=== PATIENT | female | born 1935 | race African-American/Black ===

== ENCOUNTER 2016-11-09 15:03 | Emergency (ER) | payer MEDICARE, OTHER ==
[~2016-11-09] VITALS: Ht 162.6 cm; Wt 57.7 kg
[~2016-11-09 15:03] MED LIST: ASPI-556 PO; ATEN50TA PO; ATOR40TA28 PO; CLOP75 PO; DSS100 PO; ERGO500044 PO; FAMO20 PO; HYDR25 PO; LOSA25TA21 PO; MAGOX PO; METF500T4 PO; MULT-248 PO; SENN-30 PO
[2016-11-09 15:27] LABS: GLUCOSE,POINT OF CARE 96 MG/DL (70-110)
[2016-11-09] MEDS ORDERED: CloNIDine HCL 0.2 MG TABLET PO ONE (18:30)
[2016-11-09 19:27] LABS: BASOPHILS % (AUTO) 0.5 % (0.0-2.0); EOSINOPHILS % (AUTO) 5.9 % (1.0-6.0); HEMATOCRIT 44.6 % (36-46); HEMOGLOBIN 13.9 g/dL (12.0-16.0); LYMPHOCYTES % (AUTO) 30.6 % (22.0-44.0); MEAN CORPUSCULAR HEMOGLOBIN 26.7 pg (26.0-34.0); MEAN CORPUSCULAR HGB CONC 31.1 G/dL (31.0-37.0); MEAN CORPUSCULAR VOLUME 86 fL (80-100); MONOCYTES # (AUTO) 0.7 K/uL (0.1-1.0); MONOCYTES % (AUTO) 7.6 % (2.0-9.0); NEUTROPHILS # (AUTO) 5.4 K/uL (1.8-7.7); NEUTROPHILS % (AUTO) 55.4 % (40.0-70.0); PLATELET COUNT (AUTO) 261 K/uL (150-450); RED BLOOD CELL COUNT(AUTO) 5.19 MIL/uL (4.00-5.20); WHITE BLOOD COUNT (AUTO) 9.7 K/uL (4.5-11.0)
[2016-11-09 19:31] LABS: ANION GAP 11 mmol/L (8-16); CARBON DIOXIDE 27 mmol/L (22-29); CHLORIDE 104 mmol/L (98-107); CREATININE 0.71 mg/dL (0.60-1.30); GLOMERULAR FILTR. RATE CALC > 60 mL/min (>60); POTASSIUM 3.8 mmol/L (3.5-5.1); SODIUM SERUM 142 mmol/L (136-145); UREA NITROGEN, BLOOD 8 mg/dL (7-18)
[2016-11-09 19:37] LABS: ALANINE AMINOTRANSFERASE 41 U/L (12-78); ALBUMIN 4.1 g/dL (3.4-5.0); ASPARTATE AMINOTRANSFERASE 36 U/L (15-37); BILIRUBIN,TOTAL 0.8 mg/dL (0.1-1.0); CREATINE KINASE, TOTAL 75 U/L (26-192); TOTAL PROTEIN, SERUM 8.2 g/dL (6.4-8.2)
[2016-11-09 19:42] LABS: B-TYPE NATRIURETIC PEPTIDE 63 pg/mL (0-100)
[2016-11-09 20:45] LABS: CREATINE KINASE MB 0.9 ng/mL (0-5)
[2016-11-09 21:49] VITALS: BP 123/68
== END 2016-11-09 22:26 | disposition home or self-care (01) ==
LOC: EMS 15:06
DX: I10 Essential (primary) hypertension (principal); E11.9 Type 2 diabetes mellitus without complications; E78.00 Pure hypercholesterolemia, unspecified; Z86.73 Personal history of transient ischemic attack (TIA), and cerebral infarction without residual deficits; Z79.82 Long term (current) use of aspirin
CPT/HCPCS: 82962; 93005; 99285

== ENCOUNTER 2017-09-30 17:20 | Inpatient (IN) | payer MEDICARE, OTHER ==
[~2017-09-30] VITALS: Ht 162.6 cm; Wt 63.5 kg
[~2017-09-30 17:20] MED LIST changes: -HYDR25 PO; +HYDR25TA84 PO; -METF500T4 PO; +METF500T6 PO; +SENN-175 PO; -SENN-30 PO
[2017-09-30 17:30] VITALS: BP 105/76
[2017-09-30] MEDS ORDERED: TEMAZEPAM 15 MG CAPSULE PO PRN (18:30)
[2017-09-30] MEDS ORDERED: DOCUSATE SODIUM 283 MG/5 ML MINI-ENEMA PR PRN (18:30)
[2017-09-30] MEDS ORDERED: DEXTROSE 50%-WATER 25 GM/50 ML SYRINGE IVP PRN (18:30)
[2017-09-30] MEDS: HydrALAZINE HCL 25 MG TABLET PO SCH (21:00)
[2017-09-30] MEDS: ATENOLOL 50 MG TABLET PO SCH (21:00)
[2017-09-30 21:01] LABS: APPEARANCE,URINE CLOUDY (CLEAR); BILIRUBIN,URINE NEGATIVE (NEGATIVE); GLUCOSE, URINE (UA) 250 mg/dL (NEGATIVE); KETONES,URINE TRACE mg/dL (NEGATIVE); LEUKOCYTE ESTERASE ,URINE MODERATE (NEGATIVE); NITRATE,URINE NEGATIVE (NEGATIVE); OCCULT BLOOD,URINE NEGATIVE (NEGATIVE); PH,URINE 5.5 (5.0-8.0); PROTEIN,URINE NEGATIVE (NEGATIVE)
[2017-09-30] MEDS: DOCUSATE SODIUM 100 MG CAPSULE PO SCH (21:18)
[2017-09-30] MEDS: SENNA 187 MG TABLET PO SCH (21:18)
[2017-09-30] MEDS: ATORVASTATIN CALCIUM 40 MG TABLET PO SCH (21:18)
[2017-09-30 21:34] LABS: BACTERIA,URINE Rare /HPF (None Seen); RBC,URINE None Seen /HPF (0-2); SQUAMOUS EPITHELIAL CELL,UR Few /LPF (None Seen)
[2017-09-30] MEDS: INSULIN LISPRO 100 UNITS/ML SQ PRN (21:35)
[2017-09-30] MEDS: INSULIN GLARGINE,HUM.REC.ANLOG 100 UNITS/ML SQ SCH (21:36)
[2017-09-30] MEDS: HYDROCODONE/ACETAMINOPHEN 5-325 MG TABLET PO PRN (21:52)
[2017-09-30 21:58] LABS: GLUCOMETER DEV NAME(LOC) 2WR 1B; GLUCOSE,POINT OF CARE 258 MG/DL (70-110)
[2017-10-01 05:00] VITALS: BP 118/53
[2017-10-01 05:47] LABS: GLUCOMETER DEV NAME(LOC) 2WR 1B; GLUCOSE,POINT OF CARE 241 MG/DL (70-110)
[2017-10-01] MEDS: LACTULOSE 20 GM/30 ML SOLUTION UDCUP PO PRN (06:11)
[2017-10-01] MEDS: HYDROCODONE/ACETAMINOPHEN 5-325 MG TABLET PO PRN (06:15)
[2017-10-01 07:43] LABS: BASOPHILS % (AUTO) 1.2 % (0.0-2.0); EOSINOPHILS % (AUTO) 4.8 % (1.0-6.0); HEMATOCRIT 31.5 % (36-46); HEMOGLOBIN 10.5 g/dL (12.0-16.0); LYMPHOCYTES # (AUTO) 2.2 K/uL (1.0-4.8); LYMPHOCYTES % (AUTO) 18.4 % (22.0-44.0); MEAN CORPUSCULAR HEMOGLOBIN 27.4 pg (26.0-34.0); MEAN CORPUSCULAR HGB CONC 33.3 G/dL (31.0-37.0); MEAN CORPUSCULAR VOLUME 83 fL (80-100); MONOCYTES # (AUTO) 1.1 K/uL (0.1-1.0); MONOCYTES % (AUTO) 9.7 % (2.0-9.0); NEUTROPHILS # (AUTO) 7.8 K/uL (1.8-7.7); NEUTROPHILS % (AUTO) 65.9 % (40.0-70.0); PLATELET COUNT (AUTO) 215 K/uL (150-450); RED BLOOD CELL COUNT(AUTO) 3.82 MIL/uL (4.00-5.20); RED CELL DISTRIBUTION WIDTH 13.6 % (11.5-14.5)
[2017-10-01 08:22] VITALS: BP 104/52
[2017-10-01] MEDS: INSULIN LISPRO 100 UNITS/ML SQ SCH ×3 (08:37→16:48)
[2017-10-01] MEDS: INSULIN LISPRO 100 UNITS/ML SQ PRN ×2 (08:38→20:37)
[2017-10-01 08:46] LABS: ALBUMIN 2.5 g/dL (3.4-5.0); BILIRUBIN,TOTAL 1.1 mg/dL (0.1-1.0); CALCIUM, TOTAL 8.9 mg/dL (8.8-10.5); CREATININE 1.22 mg/dL (0.60-1.30); MAGNESIUM 1.8 mg/dL (1.80-2.40); POTASSIUM 3.5 mmol/L (3.5-5.1); TOTAL PROTEIN, SERUM 6.1 g/dL (6.4-8.2)
[2017-10-01] MEDS ORDERED: ENOXAPARIN SODIUM 30 MG/0.3 ML PF SYRINGE SQ SCH (09:00)
[2017-10-01] MEDS ORDERED: HYDROCHLOROTHIAZIDE 25 MG TABLET PO SCH (09:00)
[2017-10-01] MEDS: VALSARTAN 80 MG TABLET PO SCH (09:00)
[2017-10-01] MEDS: HydrALAZINE HCL 25 MG TABLET PO SCH ×4 (09:00→20:34)
[2017-10-01] MEDS ORDERED: AmLODIPine BESYLATE 10 MG TABLET PO SCH (09:00)
[2017-10-01] MEDS: ATENOLOL 50 MG TABLET PO SCH ×2 (09:00→20:34)
[2017-10-01] MEDS: CLOPIDOGREL BISULFATE 75 MG TABLET PO SCH (09:41)
[2017-10-01] MEDS: MAGNESIUM OXIDE 400 MG TABLET PO SCH (09:41)
[2017-10-01] MEDS: DOCUSATE SODIUM 100 MG CAPSULE PO SCH ×2 (09:41→20:34)
[2017-10-01] MEDS: FAMOTIDINE 20 MG TABLET PO SCH (09:41)
[2017-10-01] MEDS: HYDROCODONE/ACETAMINOPHEN 10-325 MG TABLET PO PRN ×2 (09:41→18:57)
[2017-10-01 12:32] LABS: GLUCOMETER DEV NAME(LOC) 2WR 2E; GLUCOSE,POINT OF CARE 268 MG/DL (70-110)
[2017-10-01 13:42] VITALS: BP 107/53
[2017-10-01] MEDS: ENOXAPARIN SODIUM 40 MG/0.4 ML PF SYRINGE SQ SCH (13:46)
[2017-10-01 15:30] VITALS: BP 101/48
[2017-10-01 16:58] LABS: GLUCOMETER DEV NAME(LOC) 2WR 1B; GLUCOSE,POINT OF CARE 355 MG/DL (70-110)
[2017-10-01 20:25] VITALS: BP 122/56
[2017-10-01] MEDS: SENNA 187 MG TABLET PO SCH (20:34)
[2017-10-01] MEDS: ATORVASTATIN CALCIUM 40 MG TABLET PO SCH (20:34)
[2017-10-01] MEDS: INSULIN GLARGINE,HUM.REC.ANLOG 100 UNITS/ML SQ SCH (20:36)
[2017-10-01 20:52] LABS: GLUCOMETER DEV NAME(LOC) 2WR 1B; GLUCOSE,POINT OF CARE 317 MG/DL (70-110)
[2017-10-02 00:38] VITALS: BP 132/61
[2017-10-02] MEDS: HYDROCODONE/ACETAMINOPHEN 10-325 MG TABLET PO PRN ×3 (00:38→14:07)
[2017-10-02] MEDS: CefTRIAXone SODIUM 1 GM in DEXTROSE 5%-WATER 10 ML IV SCH ×2 (00:41→21:54)
[2017-10-02 06:02] LABS: GLUCOMETER DEV NAME(LOC) 2WR 2E; GLUCOSE,POINT OF CARE 248 MG/DL (70-110)
[2017-10-02] MEDS: LACTULOSE 20 GM/30 ML SOLUTION UDCUP PO PRN (06:21)
[2017-10-02 07:07] LABS: BASOPHILS % (AUTO) 0.4 % (0.0-2.0); EOSINOPHILS % (AUTO) 4.6 % (1.0-6.0); HEMATOCRIT 31.4 % (36-46); HEMOGLOBIN 10.6 g/dL (12.0-16.0); LYMPHOCYTES # (AUTO) 2.2 K/uL (1.0-4.8); LYMPHOCYTES % (AUTO) 19.3 % (22.0-44.0); MEAN CORPUSCULAR HEMOGLOBIN 28.1 pg (26.0-34.0); MEAN CORPUSCULAR HGB CONC 33.8 G/dL (31.0-37.0); MEAN CORPUSCULAR VOLUME 83 fL (80-100); MONOCYTES # (AUTO) 1.1 K/uL (0.1-1.0); MONOCYTES % (AUTO) 9.6 % (2.0-9.0); NEUTROPHILS # (AUTO) 7.7 K/uL (1.8-7.7); NEUTROPHILS % (AUTO) 66.1 % (40.0-70.0); PLATELET COUNT (AUTO) 232 K/uL (150-450); RED BLOOD CELL COUNT(AUTO) 3.79 MIL/uL (4.00-5.20); RED CELL DISTRIBUTION WIDTH 13.5 % (11.5-14.5)
[2017-10-02 08:09] VITALS: BP 123/65
[2017-10-02] MEDS: VALSARTAN 80 MG TABLET PO SCH (08:56)
[2017-10-02] MEDS: CLOPIDOGREL BISULFATE 75 MG TABLET PO SCH (08:56)
[2017-10-02] MEDS: FAMOTIDINE 20 MG TABLET PO SCH (08:56)
[2017-10-02] MEDS: MAGNESIUM OXIDE 400 MG TABLET PO SCH (08:56)
[2017-10-02] MEDS: ATENOLOL 50 MG TABLET PO SCH ×2 (08:56→20:28)
[2017-10-02] MEDS: DOCUSATE SODIUM 250 MG CAPSULE PO SCH ×2 (08:57→20:25)
[2017-10-02] MEDS: 0.9% SODIUM CHLORIDE 10 ML SYRINGE IVP SCH ×3 (08:57→23:30)
[2017-10-02] MEDS: ENOXAPARIN SODIUM 40 MG/0.4 ML PF SYRINGE SQ SCH (08:58)
[2017-10-02] MEDS: INSULIN LISPRO 100 UNITS/ML SQ SCH ×3 (09:12→18:43)
[2017-10-02] MEDS: INSULIN LISPRO 100 UNITS/ML SQ PRN ×3 (09:13→18:44)
[2017-10-02 12:17] LABS: GLUCOMETER DEV NAME(LOC) 2WR 2E; GLUCOSE,POINT OF CARE 329 MG/DL (70-110)
[2017-10-02 15:10] VITALS: BP 130/64
[2017-10-02 17:03] LABS: GLUCOMETER DEV NAME(LOC) 2WR 2E; GLUCOSE,POINT OF CARE 188 MG/DL (70-110)
[2017-10-02 20:19] VITALS: BP 101/50
[2017-10-02] MEDS: ATORVASTATIN CALCIUM 40 MG TABLET PO SCH (20:25)
[2017-10-02] MEDS: SENNA 187 MG TABLET PO SCH (20:25)
[2017-10-02] MEDS ORDERED: OxyCODONE HCL 10 MG ER TABLET PO PRN (20:30)
[2017-10-02] MEDS: HYDROCODONE/ACETAMINOPHEN 5-325 MG TABLET PO PRN (20:32)
[2017-10-02] MEDS: INSULIN GLARGINE,HUM.REC.ANLOG 100 UNITS/ML SQ SCH (20:32)
[2017-10-02 21:17] LABS: GLUCOMETER DEV NAME(LOC) 2WR 1B; GLUCOSE,POINT OF CARE 173 MG/DL (70-110)
[2017-10-02] MEDS ORDERED: CefTRIAXone SODIUM 1 GM in DEXTROSE 5%-WATER 10 ML IV SCH (22:00)
[2017-10-02 23:44] VITALS: BP 103/52
[2017-10-03 06:23] LABS: GLUCOMETER DEV NAME(LOC) 2WR 1B; GLUCOSE,POINT OF CARE 155 MG/DL (70-110)
[2017-10-03 07:18] VITALS: BP 132/62
[2017-10-03] MEDS: INSULIN LISPRO 100 UNITS/ML SQ SCH ×3 (08:06→18:13)
[2017-10-03] MEDS: 0.9% SODIUM CHLORIDE 10 ML SYRINGE IVP SCH ×3 (08:10→23:25)
[2017-10-03] MEDS: FAMOTIDINE 20 MG TABLET PO SCH (09:00)
[2017-10-03] MEDS: ATENOLOL 50 MG TABLET PO SCH ×2 (09:00→21:19)
[2017-10-03] MEDS: ENOXAPARIN SODIUM 40 MG/0.4 ML PF SYRINGE SQ SCH (09:00)
[2017-10-03] MEDS: HYDROCODONE/ACETAMINOPHEN 10-325 MG TABLET PO PRN ×2 (09:01→21:37)
[2017-10-03] MEDS: CLOPIDOGREL BISULFATE 75 MG TABLET PO SCH (09:01)
[2017-10-03] MEDS: DOCUSATE SODIUM 250 MG CAPSULE PO SCH ×2 (09:01→21:19)
[2017-10-03] MEDS: VALSARTAN 80 MG TABLET PO SCH (09:01)
[2017-10-03] MEDS: MAGNESIUM OXIDE 400 MG TABLET PO SCH (09:02)
[2017-10-03] MEDS: INSULIN LISPRO 100 UNITS/ML SQ PRN (12:47)
[2017-10-03 14:08] LABS: GLUCOMETER DEV NAME(LOC) 2WR 2E; GLUCOSE,POINT OF CARE 234 MG/DL (70-110)
[2017-10-03 15:10] VITALS: BP 106/50
[2017-10-03 17:47] LABS: GLUCOMETER DEV NAME(LOC) 2WR 2E; GLUCOSE,POINT OF CARE 211 MG/DL (70-110)
[2017-10-03 21:00] VITALS: BP 125/62
[2017-10-03] MEDS: SENNA 187 MG TABLET PO SCH (21:19)
[2017-10-03] MEDS: ATORVASTATIN CALCIUM 40 MG TABLET PO SCH (21:19)
[2017-10-03] MEDS: CefTRIAXone SODIUM 1 GM in DEXTROSE 5%-WATER 10 ML IV SCH (21:20)
[2017-10-03 21:28] LABS: GLUCOMETER DEV NAME(LOC) 2WR 2E; GLUCOSE,POINT OF CARE 244 MG/DL (70-110)
[2017-10-03] MEDS: INSULIN GLARGINE,HUM.REC.ANLOG 100 UNITS/ML SQ SCH (21:33)
[2017-10-03 23:19] VITALS: BP 107/66
[2017-10-04 05:47] LABS: GLUCOMETER DEV NAME(LOC) 2WR 2E; GLUCOSE,POINT OF CARE 199 MG/DL (70-110)
[2017-10-04] MEDS: LACTULOSE 20 GM/30 ML SOLUTION UDCUP PO PRN (06:24)
[2017-10-04 07:00] LABS: BASOPHILS % (AUTO) 0.4 % (0.0-2.0); EOSINOPHILS % (AUTO) 4.1 % (1.0-6.0); HEMATOCRIT 30.8 % (36-46); HEMOGLOBIN 10.1 g/dL (12.0-16.0); LYMPHOCYTES # (AUTO) 3.1 K/uL (1.0-4.8); LYMPHOCYTES % (AUTO) 23.5 % (22.0-44.0); MEAN CORPUSCULAR HEMOGLOBIN 27.2 pg (26.0-34.0); MEAN CORPUSCULAR HGB CONC 32.6 G/dL (31.0-37.0); MEAN CORPUSCULAR VOLUME 84 fL (80-100); MONOCYTES # (AUTO) 1.4 K/uL (0.1-1.0); MONOCYTES % (AUTO) 10.5 % (2.0-9.0); NEUTROPHILS # (AUTO) 8.1 K/uL (1.8-7.7); NEUTROPHILS % (AUTO) 61.5 % (40.0-70.0); PLATELET COUNT (AUTO) 273 K/uL (150-450); RED BLOOD CELL COUNT(AUTO) 3.69 MIL/uL (4.00-5.20)
[2017-10-04 07:10] LABS: ANION GAP 8 mmol/L (8-16); CALCIUM, TOTAL 8.9 mg/dL (8.8-10.5); CARBON DIOXIDE 28 mmol/L (22-29); CHLORIDE 101 mmol/L (98-107); CREATININE 1.02 mg/dL (0.60-1.30); GLOMERULAR FILTR. RATE CALC > 60 mL/min (>60); GLUCOSE,RANDOM 191 mg/dL (70-110); POTASSIUM 3.7 mmol/L (3.5-5.1); SODIUM SERUM 137 mmol/L (136-145); UREA NITROGEN, BLOOD 24 mg/dL (7-18)
[2017-10-04 07:47] VITALS: BP 116/61
[2017-10-04] MEDS: HYDROCODONE/ACETAMINOPHEN 10-325 MG TABLET PO PRN ×2 (07:49→20:18)
[2017-10-04] MEDS: INSULIN LISPRO 100 UNITS/ML SQ SCH (08:14)
[2017-10-04] MEDS: 0.9% SODIUM CHLORIDE 10 ML SYRINGE IVP SCH ×3 (08:14→23:29)
[2017-10-04] MEDS: INSULIN LISPRO 100 UNITS/ML SQ PRN ×3 (08:20→20:49)
[2017-10-04] MEDS ORDERED: ATENOLOL 25 MG TABLET PO SCH (09:00)
[2017-10-04 09:33] VITALS: BP 91/49
[2017-10-04] MEDS: FAMOTIDINE 20 MG TABLET PO SCH (09:37)
[2017-10-04] MEDS: CLOPIDOGREL BISULFATE 75 MG TABLET PO SCH (09:37)
[2017-10-04] MEDS: DOCUSATE SODIUM 250 MG CAPSULE PO SCH ×2 (09:37→20:18)
[2017-10-04] MEDS: MAGNESIUM OXIDE 400 MG TABLET PO SCH (09:38)
[2017-10-04] MEDS: ENOXAPARIN SODIUM 40 MG/0.4 ML PF SYRINGE SQ SCH (09:39)
[2017-10-04] MEDS: HYDROCODONE/ACETAMINOPHEN 5-325 MG TABLET PO PRN (14:08)
[2017-10-04 15:28] LABS: GLUCOMETER DEV NAME(LOC) 2WR 1B; GLUCOSE,POINT OF CARE 240 MG/DL (70-110)
[2017-10-04 15:28] LABS: GLUCOMETER DEV NAME(LOC) 2WR 1B; GLUCOSE,POINT OF CARE 290 MG/DL (70-110)
[2017-10-04 16:06] VITALS: BP 104/57
[2017-10-04 16:18] LABS: APPEARANCE,URINE CLEAR (CLEAR); BILIRUBIN,URINE NEGATIVE (NEGATIVE); GLUCOSE, URINE (UA) 500 mg/dL (NEGATIVE); KETONES,URINE TRACE mg/dL (NEGATIVE); LEUKOCYTE ESTERASE ,URINE NEGATIVE (NEGATIVE); NITRATE,URINE NEGATIVE (NEGATIVE); OCCULT BLOOD,URINE NEGATIVE (NEGATIVE); PROTEIN,URINE NEGATIVE (NEGATIVE)
[2017-10-04 16:37] LABS: BACTERIA,URINE None Seen /HPF (None Seen); RBC,URINE 0-2 /HPF (0-2); SQUAMOUS EPITHELIAL CELL,UR Few /LPF (None Seen); WBC,URINE 0-2 /HPF (0-5)
[2017-10-04 17:18] LABS: GLUCOMETER DEV NAME(LOC) 2WR 2E; GLUCOSE,POINT OF CARE 208 MG/DL (70-110)
[2017-10-04] MEDS: MetFORMIN HCL 500 MG TABLET PO SCH (18:29)
[2017-10-04] MEDS: ATORVASTATIN CALCIUM 40 MG TABLET PO SCH (20:16)
[2017-10-04] MEDS: SENNA 187 MG TABLET PO SCH (20:17)
[2017-10-04] MEDS: CefTRIAXone SODIUM 1 GM in DEXTROSE 5%-WATER 10 ML IV SCH (20:20)
[2017-10-04 20:38] LABS: GLUCOMETER DEV NAME(LOC) 2WR 2E; GLUCOSE,POINT OF CARE 254 MG/DL (70-110)
[2017-10-04] MEDS: ACETAMINOPHEN 325 MG TABLET PO PRN (22:42)
[2017-10-05] VITALS: BP 118/57
[2017-10-05] MEDS: LACTULOSE 20 GM/30 ML SOLUTION UDCUP PO PRN (05:32)
[2017-10-05 05:47] LABS: GLUCOMETER DEV NAME(LOC) 2WR 1B; GLUCOSE,POINT OF CARE 198 MG/DL (70-110)
[2017-10-05 07:40] VITALS: BP 115/61
[2017-10-05] MEDS: OxyCODONE HCL 10 MG ER TABLET PO SCH (08:35)
[2017-10-05] MEDS: DOCUSATE SODIUM 250 MG CAPSULE PO SCH ×2 (08:35→21:07)
[2017-10-05] MEDS: CLOPIDOGREL BISULFATE 75 MG TABLET PO SCH (08:35)
[2017-10-05] MEDS: FAMOTIDINE 20 MG TABLET PO SCH (08:35)
[2017-10-05] MEDS: MetFORMIN HCL 500 MG TABLET PO SCH ×2 (08:36→17:00)
[2017-10-05] MEDS: 0.9% SODIUM CHLORIDE 10 ML SYRINGE IVP SCH ×2 (08:36→16:54)
[2017-10-05] MEDS: MAGNESIUM OXIDE 400 MG TABLET PO SCH (08:36)
[2017-10-05] MEDS: ENOXAPARIN SODIUM 40 MG/0.4 ML PF SYRINGE SQ SCH (08:37)
[2017-10-05] MEDS: INSULIN LISPRO 100 UNITS/ML SQ PRN ×4 (08:37→21:51)
[2017-10-05] MEDS: SitaGLIPtin PHOSPHATE 25 MG TABLET PO SCH (08:43)
[2017-10-05 11:33] LABS: GLUCOMETER DEV NAME(LOC) 2WR 2E; GLUCOSE,POINT OF CARE 276 MG/DL (70-110)
[2017-10-05] MEDS: HYDROCODONE/ACETAMINOPHEN 5-325 MG TABLET PO PRN ×2 (13:33→18:13)
[2017-10-05 16:30] VITALS: BP 125/59
[2017-10-05 18:07] LABS: GLUCOMETER DEV NAME(LOC) 2WR 1B; GLUCOSE,POINT OF CARE 167 MG/DL (70-110)
[2017-10-05] MEDS: ATORVASTATIN CALCIUM 40 MG TABLET PO SCH (21:07)
[2017-10-05] MEDS: SENNA 187 MG TABLET PO SCH (21:07)
[2017-10-05 21:58] LABS: GLUCOMETER DEV NAME(LOC) 2WR 1B; GLUCOSE,POINT OF CARE 180 MG/DL (70-110)
[2017-10-06] MEDS: 0.9% SODIUM CHLORIDE 10 ML SYRINGE IVP SCH ×3 (00:26→16:00)
[2017-10-06 05:00] VITALS: BP 127/64
[2017-10-06 05:43] LABS: GLUCOMETER DEV NAME(LOC) 2WR 2E; GLUCOSE,POINT OF CARE 162 MG/DL (70-110)
[2017-10-06 06:53] LABS: BASOPHILS % (AUTO) 0.1 % (0.0-2.0); EOSINOPHILS % (AUTO) 3.3 % (1.0-6.0); HEMATOCRIT 30.5 % (36-46); LYMPHOCYTES # (AUTO) 2.2 K/uL (1.0-4.8); LYMPHOCYTES % (AUTO) 18.8 % (22.0-44.0); MEAN CORPUSCULAR HEMOGLOBIN 27.6 pg (26.0-34.0); MEAN CORPUSCULAR HGB CONC 32.8 G/dL (31.0-37.0); MEAN CORPUSCULAR VOLUME 84 fL (80-100); MONOCYTES # (AUTO) 1.1 K/uL (0.1-1.0); MONOCYTES % (AUTO) 9.2 % (2.0-9.0); NEUTROPHILS # (AUTO) 7.9 K/uL (1.8-7.7); NEUTROPHILS % (AUTO) 68.6 % (40.0-70.0); PLATELET COUNT (AUTO) 337 K/uL (150-450); RED BLOOD CELL COUNT(AUTO) 3.62 MIL/uL (4.00-5.20); RED CELL DISTRIBUTION WIDTH 14.6 % (11.5-14.5)
[2017-10-06 07:22] VITALS: BP 122/61
[2017-10-06] MEDS: OxyCODONE HCL 10 MG ER TABLET PO SCH ×2 (07:27→21:09)
[2017-10-06] MEDS: CLOPIDOGREL BISULFATE 75 MG TABLET PO SCH (08:28)
[2017-10-06] MEDS: MetFORMIN HCL 500 MG TABLET PO SCH ×2 (08:29→16:29)
[2017-10-06] MEDS: MAGNESIUM OXIDE 400 MG TABLET PO SCH (08:29)
[2017-10-06] MEDS: SitaGLIPtin PHOSPHATE 25 MG TABLET PO SCH (08:29)
[2017-10-06] MEDS: FAMOTIDINE 20 MG TABLET PO SCH (08:29)
[2017-10-06] MEDS: DOCUSATE SODIUM 250 MG CAPSULE PO SCH ×2 (08:29→21:08)
[2017-10-06] MEDS: ENOXAPARIN SODIUM 40 MG/0.4 ML PF SYRINGE SQ SCH (08:30)
[2017-10-06] MEDS: INSULIN LISPRO 100 UNITS/ML SQ PRN ×3 (08:37→21:21)
[2017-10-06 12:48] LABS: GLUCOMETER DEV NAME(LOC) 2WR 2E; GLUCOSE,POINT OF CARE 214 MG/DL (70-110)
[2017-10-06] MEDS: HYDROCODONE/ACETAMINOPHEN 10-325 MG TABLET PO PRN (12:54)
[2017-10-06 15:59] VITALS: BP 110/57
[2017-10-06 19:47] LABS: GLUCOMETER DEV NAME(LOC) 2WR 1B; GLUCOSE,POINT OF CARE 127 MG/DL (70-110)
[2017-10-06] MEDS: SENNA 187 MG TABLET PO SCH (21:08)
[2017-10-06] MEDS: ATORVASTATIN CALCIUM 40 MG TABLET PO SCH (21:08)
[2017-10-06] MEDS: ACETAMINOPHEN 325 MG TABLET PO PRN (21:22)
[2017-10-06 23:08] LABS: GLUCOMETER DEV NAME(LOC) 2WR 1B; GLUCOSE,POINT OF CARE 148 MG/DL (70-110)
[2017-10-07] MEDS: 0.9% SODIUM CHLORIDE 10 ML SYRINGE IVP SCH
[2017-10-07 00:11] VITALS: BP 122/55
[2017-10-07 06:28] LABS: GLUCOMETER DEV NAME(LOC) 2WR 2E; GLUCOSE,POINT OF CARE 145 MG/DL (70-110)
[2017-10-07 07:18] VITALS: BP 124/58
[2017-10-07] MEDS: MetFORMIN HCL 500 MG TABLET PO SCH ×2 (08:04→18:49)
[2017-10-07] MEDS: CLOPIDOGREL BISULFATE 75 MG TABLET PO SCH (08:05)
[2017-10-07] MEDS: MAGNESIUM OXIDE 400 MG TABLET PO SCH (08:05)
[2017-10-07] MEDS: DOCUSATE SODIUM 250 MG CAPSULE PO SCH ×2 (08:05→20:47)
[2017-10-07] MEDS: FAMOTIDINE 20 MG TABLET PO SCH (08:05)
[2017-10-07] MEDS: SitaGLIPtin PHOSPHATE 25 MG TABLET PO SCH (08:05)
[2017-10-07] MEDS: ENOXAPARIN SODIUM 40 MG/0.4 ML PF SYRINGE SQ SCH (08:06)
[2017-10-07] MEDS: OxyCODONE HCL 10 MG ER TABLET PO SCH ×2 (08:06→20:47)
[2017-10-07] MEDS: INSULIN LISPRO 100 UNITS/ML SQ PRN ×2 (08:20→13:00)
[2017-10-07] MEDS: HYDROCODONE/ACETAMINOPHEN 5-325 MG TABLET PO PRN (11:41)
[2017-10-07 12:48] LABS: GLUCOMETER DEV NAME(LOC) 2WR 1B; GLUCOSE,POINT OF CARE 170 MG/DL (70-110)
[2017-10-07 15:51] VITALS: BP 121/58
[2017-10-07 18:03] LABS: GLUCOMETER DEV NAME(LOC) 2WR 2E; GLUCOSE,POINT OF CARE 133 MG/DL (70-110)
[2017-10-07] MEDS: SENNA 187 MG TABLET PO SCH (20:47)
[2017-10-07] MEDS: ATORVASTATIN CALCIUM 40 MG TABLET PO SCH (20:47)
[2017-10-07 21:08] LABS: GLUCOMETER DEV NAME(LOC) 2WR 1B; GLUCOSE,POINT OF CARE 136 MG/DL (70-110)
[2017-10-08 05:57] LABS: GLUCOMETER DEV NAME(LOC) 2WR 2E; GLUCOSE,POINT OF CARE 123 MG/DL (70-110)
[2017-10-08 06:12] VITALS: BP 138/74
[2017-10-08] MEDS: LACTULOSE 20 GM/30 ML SOLUTION UDCUP PO PRN (06:21)
[2017-10-08 08:30] VITALS: BP 121/50
[2017-10-08] MEDS: OxyCODONE HCL 10 MG ER TABLET PO SCH ×2 (08:35→21:26)
[2017-10-08] MEDS: SitaGLIPtin PHOSPHATE 25 MG TABLET PO SCH (09:30)
[2017-10-08] MEDS: MetFORMIN HCL 500 MG TABLET PO SCH ×2 (09:30→17:02)
[2017-10-08] MEDS: CLOPIDOGREL BISULFATE 75 MG TABLET PO SCH (09:30)
[2017-10-08] MEDS: MAGNESIUM OXIDE 400 MG TABLET PO SCH (09:30)
[2017-10-08] MEDS: DOCUSATE SODIUM 250 MG CAPSULE PO SCH ×2 (09:30→21:26)
[2017-10-08] MEDS: ENOXAPARIN SODIUM 40 MG/0.4 ML PF SYRINGE SQ SCH (09:31)
[2017-10-08] MEDS: FAMOTIDINE 20 MG TABLET PO SCH (09:31)
[2017-10-08 13:12] LABS: GLUCOMETER DEV NAME(LOC) 2WR 2E; GLUCOSE,POINT OF CARE 153 MG/DL (70-110)
[2017-10-08] MEDS: HYDROCODONE/ACETAMINOPHEN 10-325 MG TABLET PO PRN (13:30)
[2017-10-08] MEDS: INSULIN LISPRO 100 UNITS/ML SQ PRN (13:33)
[2017-10-08 15:36] VITALS: BP 128/64
[2017-10-08 17:48] LABS: GLUCOMETER DEV NAME(LOC) 2WR 1B; GLUCOSE,POINT OF CARE 125 MG/DL (70-110)
[2017-10-08] MEDS: SENNA 187 MG TABLET PO SCH (21:25)
[2017-10-08] MEDS: ATORVASTATIN CALCIUM 40 MG TABLET PO SCH (21:26)
[2017-10-08 22:27] LABS: GLUCOMETER DEV NAME(LOC) 2WR 2E; GLUCOSE,POINT OF CARE 140 MG/DL (70-110)
[2017-10-08 23:52] VITALS: BP 127/68
[2017-10-09 05:37] LABS: GLUCOMETER DEV NAME(LOC) 2WR 1B; GLUCOSE,POINT OF CARE 112 MG/DL (70-110)
[2017-10-09 07:55] VITALS: BP 136/83
[2017-10-09] MEDS: MetFORMIN HCL 500 MG TABLET PO SCH ×2 (08:26→17:10)
[2017-10-09] MEDS: SitaGLIPtin PHOSPHATE 25 MG TABLET PO SCH (08:26)
[2017-10-09] MEDS: FAMOTIDINE 20 MG TABLET PO SCH (08:26)
[2017-10-09] MEDS: OxyCODONE HCL 10 MG ER TABLET PO SCH ×2 (08:26→21:00)
[2017-10-09] MEDS: DOCUSATE SODIUM 250 MG CAPSULE PO SCH ×2 (08:27→21:00)
[2017-10-09] MEDS: ENOXAPARIN SODIUM 40 MG/0.4 ML PF SYRINGE SQ SCH (08:27)
[2017-10-09] MEDS: CLOPIDOGREL BISULFATE 75 MG TABLET PO SCH (08:28)
[2017-10-09] MEDS: MAGNESIUM OXIDE 400 MG TABLET PO SCH (08:32)
[2017-10-09 12:28] LABS: GLUCOMETER DEV NAME(LOC) 2WR 1B; GLUCOSE,POINT OF CARE 175 MG/DL (70-110)
[2017-10-09] MEDS: INSULIN LISPRO 100 UNITS/ML SQ PRN (12:35)
[2017-10-09 15:56] VITALS: BP 128/72
[2017-10-09 17:23] LABS: GLUCOMETER DEV NAME(LOC) 2WR 2E; GLUCOSE,POINT OF CARE 105 MG/DL (70-110)
[2017-10-09] MEDS: ATORVASTATIN CALCIUM 40 MG TABLET PO SCH (21:00)
[2017-10-09] MEDS: SENNA 187 MG TABLET PO SCH (21:00)
[2017-10-09 21:12] LABS: GLUCOMETER DEV NAME(LOC) 2WR 2E; GLUCOSE,POINT OF CARE 111 MG/DL (70-110)
[2017-10-10 00:08] VITALS: BP 131/71
[2017-10-10] MEDS: LACTULOSE 20 GM/30 ML SOLUTION UDCUP PO PRN (05:46)
[2017-10-10 05:52] LABS: GLUCOMETER DEV NAME(LOC) 2WR 2E; GLUCOSE,POINT OF CARE 108 MG/DL (70-110)
[2017-10-10] MEDS ORDERED: SITA25 PO (06:47)
[2017-10-10 09:44] VITALS: BP 143/64
[2017-10-10] MEDS: ENOXAPARIN SODIUM 40 MG/0.4 ML PF SYRINGE SQ SCH (10:07)
[2017-10-10] MEDS: SitaGLIPtin PHOSPHATE 25 MG TABLET PO SCH (10:07)
[2017-10-10] MEDS: DOCUSATE SODIUM 250 MG CAPSULE PO SCH (10:07)
[2017-10-10] MEDS: FAMOTIDINE 20 MG TABLET PO SCH (10:07)
[2017-10-10] MEDS: MAGNESIUM OXIDE 400 MG TABLET PO SCH ×2 (10:07→12:00)
[2017-10-10] MEDS: CLOPIDOGREL BISULFATE 75 MG TABLET PO SCH ×2 (10:07→12:00)
[2017-10-10] MEDS: OxyCODONE HCL 10 MG ER TABLET PO SCH ×2 (10:07→21:14)
[2017-10-10] MEDS: MetFORMIN HCL 500 MG TABLET PO SCH ×2 (10:07→17:51)
[2017-10-10] MEDS ORDERED: ONDANSETRON HCL 4 MG TABLET PO PRN (10:30)
[2017-10-10 12:22] LABS: GLUCOMETER DEV NAME(LOC) 2WR 2E; GLUCOSE,POINT OF CARE 163 MG/DL (70-110)
[2017-10-10 15:23] VITALS: BP 124/62
[2017-10-10 17:17] LABS: GLUCOMETER DEV NAME(LOC) 2WR 1B; GLUCOSE,POINT OF CARE 117 MG/DL (70-110)
[2017-10-10 20:52] LABS: GLUCOMETER DEV NAME(LOC) 2WR 1B; GLUCOSE,POINT OF CARE 120 MG/DL (70-110)
[2017-10-10] MEDS ORDERED: DOCUSATE SODIUM 100 MG CAPSULE PO SCH (21:00)
[2017-10-10] MEDS: ATORVASTATIN CALCIUM 40 MG TABLET PO SCH (21:22)
[2017-10-10] MEDS: SENNA 187 MG TABLET PO SCH (21:22)
[2017-10-10] MEDS: DOCUSATE SODIUM 100 MG CAPSULE PO SCH (21:22)
[2017-10-10 23:36] VITALS: BP 127/62
[2017-10-11 06:02] LABS: GLUCOMETER DEV NAME(LOC) 2WR 1B; GLUCOSE,POINT OF CARE 96 MG/DL (70-110)
[2017-10-11] MEDS: FAMOTIDINE 20 MG TABLET PO SCH (06:02)
[2017-10-11 08:09] VITALS: BP 119/59
[2017-10-11] MEDS: OxyCODONE HCL 10 MG ER TABLET PO SCH ×2 (08:36→20:19)
[2017-10-11] MEDS: MetFORMIN HCL 500 MG TABLET PO SCH ×2 (08:36→16:57)
[2017-10-11] MEDS: SitaGLIPtin PHOSPHATE 25 MG TABLET PO SCH (08:36)
[2017-10-11] MEDS: ENOXAPARIN SODIUM 40 MG/0.4 ML PF SYRINGE SQ SCH (08:36)
[2017-10-11] MEDS: HYDROCODONE/ACETAMINOPHEN 10-325 MG TABLET PO PRN (10:12)
[2017-10-11 11:37] LABS: GLUCOMETER DEV NAME(LOC) 2WR 1B; GLUCOSE,POINT OF CARE 196 MG/DL (70-110)
[2017-10-11] MEDS: MAGNESIUM OXIDE 400 MG TABLET PO SCH (11:38)
[2017-10-11] MEDS: CLOPIDOGREL BISULFATE 75 MG TABLET PO SCH (11:39)
[2017-10-11] MEDS: DOCUSATE SODIUM 100 MG CAPSULE PO SCH (11:39)
[2017-10-11] MEDS: INSULIN LISPRO 100 UNITS/ML SQ PRN ×2 (12:00→18:40)
[2017-10-11 13:57] LABS: GLUCOMETER DEV NAME(LOC) 2WR 1B; GLUCOSE,POINT OF CARE 124 MG/DL (70-110)
[2017-10-11 16:56] VITALS: BP 130/62
[2017-10-11 17:28] LABS: GLUCOMETER DEV NAME(LOC) 2WR 2E; GLUCOSE,POINT OF CARE 154 MG/DL (70-110)
[2017-10-11] MEDS: SENNA 187 MG TABLET PO SCH (20:19)
[2017-10-11] MEDS: ATORVASTATIN CALCIUM 40 MG TABLET PO SCH (20:19)
[2017-10-11 22:38] LABS: GLUCOMETER DEV NAME(LOC) 2WR 2E; GLUCOSE,POINT OF CARE 110 MG/DL (70-110)
[2017-10-12] VITALS: BP 133/63
[2017-10-12] MEDS: FAMOTIDINE 20 MG TABLET PO SCH (06:09)
[2017-10-12] MEDS: LACTULOSE 20 GM/30 ML SOLUTION UDCUP PO PRN (06:10)
[2017-10-12 06:13] LABS: GLUCOMETER DEV NAME(LOC) 2WR 2E; GLUCOSE,POINT OF CARE 104 MG/DL (70-110)
[2017-10-12 07:06] VITALS: BP 133/64
[2017-10-12] MEDS: MetFORMIN HCL 500 MG TABLET PO SCH ×2 (07:30→17:24)
[2017-10-12] MEDS: SitaGLIPtin PHOSPHATE 25 MG TABLET PO SCH (08:13)
[2017-10-12] MEDS: OxyCODONE HCL 10 MG ER TABLET PO SCH ×2 (08:13→20:48)
[2017-10-12] MEDS: ENOXAPARIN SODIUM 40 MG/0.4 ML PF SYRINGE SQ SCH (08:14)
[2017-10-12 13:18] LABS: GLUCOMETER DEV NAME(LOC) 2WR 1B; GLUCOSE,POINT OF CARE 162 MG/DL (70-110)
[2017-10-12] MEDS: DOCUSATE SODIUM 100 MG CAPSULE PO SCH (13:47)
[2017-10-12] MEDS: CLOPIDOGREL BISULFATE 75 MG TABLET PO SCH (13:49)
[2017-10-12] MEDS: MAGNESIUM OXIDE 400 MG TABLET PO SCH (13:49)
[2017-10-12] MEDS: INSULIN LISPRO 100 UNITS/ML SQ PRN (13:52)
[2017-10-12 15:30] VITALS: BP 132/61
[2017-10-12 17:48] LABS: GLUCOMETER DEV NAME(LOC) 2WR 1B; GLUCOSE,POINT OF CARE 114 MG/DL (70-110)
[2017-10-12] MEDS: SENNA 187 MG TABLET PO SCH (20:47)
[2017-10-12] MEDS: ATORVASTATIN CALCIUM 40 MG TABLET PO SCH (20:47)
[2017-10-12] MEDS ORDERED: MIRTAZAPINE 15 MG TABLET PO SCH (21:00)
[2017-10-12] MEDS ORDERED: BIMATOPROST 0.01% 2.5 ML OPHTHALMIC SOLUTION OU SCH (21:24)
[2017-10-12 22:12] LABS: GLUCOMETER DEV NAME(LOC) 2WR 2E; GLUCOSE,POINT OF CARE 117 MG/DL (70-110)
[2017-10-13 02:37] VITALS: BP 136/69
[2017-10-13 05:43] LABS: GLUCOMETER DEV NAME(LOC) 2WR 1B; GLUCOSE,POINT OF CARE 114 MG/DL (70-110)
[2017-10-13] MEDS: FAMOTIDINE 20 MG TABLET PO SCH (06:11)
[2017-10-13] MEDS: MetFORMIN HCL 500 MG TABLET PO SCH ×3 (07:30→17:00)
[2017-10-13 07:45] VITALS: BP 149/55
[2017-10-13] MEDS: SitaGLIPtin PHOSPHATE 25 MG TABLET PO SCH ×2 (08:18→09:00)
[2017-10-13] MEDS: ENOXAPARIN SODIUM 40 MG/0.4 ML PF SYRINGE SQ SCH (08:18)
[2017-10-13] MEDS: OxyCODONE HCL 10 MG ER TABLET PO SCH (08:18)
[2017-10-13] MEDS: SERTRALINE HCL 50 MG TABLET PO SCH (11:15)
[2017-10-13] MEDS: CLOPIDOGREL BISULFATE 75 MG TABLET PO SCH (12:57)
[2017-10-13] MEDS: MAGNESIUM OXIDE 400 MG TABLET PO SCH (12:57)
[2017-10-13] MEDS: DOCUSATE SODIUM 100 MG CAPSULE PO SCH (12:57)
[2017-10-13 13:03] LABS: GLUCOMETER DEV NAME(LOC) 2WR 2E; GLUCOSE,POINT OF CARE 170 MG/DL (70-110)
[2017-10-13] MEDS: INSULIN LISPRO 100 UNITS/ML SQ PRN ×2 (13:03→21:21)
[2017-10-13 17:22] LABS: GLUCOMETER DEV NAME(LOC) 2WR 1B; GLUCOSE,POINT OF CARE 81 MG/DL (70-110)
[2017-10-13 17:23] VITALS: BP 121/70
[2017-10-13] MEDS: BIMATOPROST 0.01% 2.5 ML OPHTHALMIC SOLUTION OU SCH (20:42)
[2017-10-13] MEDS: ATORVASTATIN CALCIUM 40 MG TABLET PO SCH (20:42)
[2017-10-13] MEDS: SENNA 187 MG TABLET PO SCH (20:42)
[2017-10-13 21:07] LABS: GLUCOMETER DEV NAME(LOC) 2WR 1B; GLUCOSE,POINT OF CARE 198 MG/DL (70-110)
[2017-10-14 00:46] VITALS: BP 135/64
[2017-10-14] MEDS: FAMOTIDINE 20 MG TABLET PO SCH (05:59)
[2017-10-14 06:12] LABS: GLUCOMETER DEV NAME(LOC) 2WR 2E; GLUCOSE,POINT OF CARE 147 MG/DL (70-110)
[2017-10-14 08:00] VITALS: BP 155/70
[2017-10-14] MEDS: ENOXAPARIN SODIUM 40 MG/0.4 ML PF SYRINGE SQ SCH (09:15)
[2017-10-14] MEDS: SitaGLIPtin PHOSPHATE 25 MG TABLET PO SCH (09:15)
[2017-10-14] MEDS: MetFORMIN HCL 500 MG TABLET PO SCH ×2 (09:15→17:37)
[2017-10-14] MEDS: INSULIN LISPRO 100 UNITS/ML SQ PRN ×3 (09:22→21:56)
[2017-10-14] MEDS: SERTRALINE HCL 50 MG TABLET PO SCH (09:23)
[2017-10-14] MEDS ORDERED: TUBERCULIN, PURIFIED PROTEIN DERIVATIVE 5 TU/0.1 ML SYG ID ONE (10:30)
[2017-10-14 12:52] LABS: GLUCOMETER DEV NAME(LOC) 2WR 1B; GLUCOSE,POINT OF CARE 192 MG/DL (70-110)
[2017-10-14] MEDS: CLOPIDOGREL BISULFATE 75 MG TABLET PO SCH (13:16)
[2017-10-14] MEDS: DOCUSATE SODIUM 100 MG CAPSULE PO SCH (13:16)
[2017-10-14] MEDS: MAGNESIUM OXIDE 400 MG TABLET PO SCH (13:16)
[2017-10-14 16:46] VITALS: BP 156/76
[2017-10-14 17:27] LABS: GLUCOMETER DEV NAME(LOC) 2WR 2E; GLUCOSE,POINT OF CARE 122 MG/DL (70-110)
[2017-10-14 21:23] VITALS: BP_SYST 154; BP_SYST 92; BP_DIAS 59; BP_DIAS 92
[2017-10-14] MEDS: SENNA 187 MG TABLET PO SCH (21:30)
[2017-10-14] MEDS: ATORVASTATIN CALCIUM 40 MG TABLET PO SCH (21:30)
[2017-10-14] MEDS: BIMATOPROST 0.01% 2.5 ML OPHTHALMIC SOLUTION OU SCH (21:31)
[2017-10-14 22:13] LABS: GLUCOMETER DEV NAME(LOC) 2WR 2E; GLUCOSE,POINT OF CARE 178 MG/DL (70-110)
[2017-10-15] VITALS: BP 146/77
[2017-10-15 06:08] LABS: GLUCOMETER DEV NAME(LOC) 2WR 1B; GLUCOSE,POINT OF CARE 116 MG/DL (70-110)
[2017-10-15] MEDS: FAMOTIDINE 20 MG TABLET PO SCH (06:19)
[2017-10-15 06:57] LABS: BASOPHILS % (AUTO) 0.9 % (0.0-2.0); HEMATOCRIT 30.8 % (36-46); HEMOGLOBIN 10.2 g/dL (12.0-16.0); LYMPHOCYTES # (AUTO) 1.5 K/uL (1.0-4.8); MEAN CORPUSCULAR HEMOGLOBIN 28.2 pg (26.0-34.0); MEAN CORPUSCULAR HGB CONC 33.1 G/dL (31.0-37.0); MEAN CORPUSCULAR VOLUME 85 fL (80-100); MONOCYTES # (AUTO) 0.6 K/uL (0.1-1.0); NEUTROPHILS # (AUTO) 4.2 K/uL (1.8-7.7); NEUTROPHILS % (AUTO) 61.1 % (40.0-70.0); PLATELET COUNT (AUTO) 378 K/uL (150-450); RED BLOOD CELL COUNT(AUTO) 3.62 MIL/uL (4.00-5.20); RED CELL DISTRIBUTION WIDTH 16.1 % (11.5-14.5)
[2017-10-15 07:07] LABS: ALANINE AMINOTRANSFERASE 25 U/L (12-78); ALBUMIN 2.8 g/dL (3.4-5.0); ALKALINE PHOSPHATASE 104 U/L (46-116); ANION GAP 7 mmol/L (8-16); ASPARTATE AMINOTRANSFERASE 25 U/L (15-37); BILIRUBIN,TOTAL 0.7 mg/dL (0.1-1.0); CALCIUM, TOTAL 8.9 mg/dL (8.8-10.5); CARBON DIOXIDE 27 mmol/L (22-29); CHLORIDE 105 mmol/L (98-107); CREATININE 0.69 mg/dL (0.60-1.30); GLOMERULAR FILTR. RATE CALC > 60 mL/min (>60); GLUCOSE,RANDOM 124 mg/dL (70-110); POTASSIUM 3.6 mmol/L (3.5-5.1); SODIUM SERUM 139 mmol/L (136-145); TOTAL PROTEIN, SERUM 6.3 g/dL (6.4-8.2); UREA NITROGEN, BLOOD 9 mg/dL (7-18)
[2017-10-15 07:40] VITALS: BP 144/81
[2017-10-15] MEDS: MetFORMIN HCL 500 MG TABLET PO SCH ×2 (08:21→18:21)
[2017-10-15] MEDS: SitaGLIPtin PHOSPHATE 25 MG TABLET PO SCH (08:21)
[2017-10-15] MEDS: SERTRALINE HCL 50 MG TABLET PO SCH ×2 (08:21→08:59)
[2017-10-15] MEDS: ENOXAPARIN SODIUM 40 MG/0.4 ML PF SYRINGE SQ SCH (08:21)
[2017-10-15] MEDS: CLOPIDOGREL BISULFATE 75 MG TABLET PO SCH (14:07)
[2017-10-15 14:08] LABS: GLUCOMETER DEV NAME(LOC) 2WR 1B; GLUCOSE,POINT OF CARE 162 MG/DL (70-110)
[2017-10-15] MEDS: MAGNESIUM OXIDE 400 MG TABLET PO SCH (14:08)
[2017-10-15] MEDS: DOCUSATE SODIUM 100 MG CAPSULE PO SCH (14:08)
[2017-10-15] MEDS: INSULIN LISPRO 100 UNITS/ML SQ PRN (14:13)
[2017-10-15 16:56] VITALS: BP 153/74
[2017-10-15 17:37] LABS: GLUCOMETER DEV NAME(LOC) 2WR 1B; GLUCOSE,POINT OF CARE 127 MG/DL (70-110)
[2017-10-15] MEDS: SENNA 187 MG TABLET PO SCH (20:22)
[2017-10-15] MEDS: ATORVASTATIN CALCIUM 40 MG TABLET PO SCH (20:22)
[2017-10-15] MEDS: BIMATOPROST 0.01% 2.5 ML OPHTHALMIC SOLUTION OU SCH (20:23)
[2017-10-15 20:53] LABS: GLUCOMETER DEV NAME(LOC) 2WR 2E; GLUCOSE,POINT OF CARE 144 MG/DL (70-110)
[2017-10-16 04:00] VITALS: BP 155/77
[2017-10-16 06:03] LABS: GLUCOMETER DEV NAME(LOC) 2WR 2E; GLUCOSE,POINT OF CARE 104 MG/DL (70-110)
[2017-10-16] MEDS: FAMOTIDINE 20 MG TABLET PO SCH (06:58)
[2017-10-16 07:48] VITALS: BP 140/63
[2017-10-16] MEDS: ATENOLOL 25 MG TABLET PO SCH ×2 (07:52→21:32)
[2017-10-16] MEDS: MetFORMIN HCL 500 MG TABLET PO SCH ×2 (07:52→18:32)
[2017-10-16] MEDS: SitaGLIPtin PHOSPHATE 25 MG TABLET PO SCH (08:47)
[2017-10-16] MEDS: SERTRALINE HCL 50 MG TABLET PO SCH (08:47)
[2017-10-16] MEDS: ENOXAPARIN SODIUM 40 MG/0.4 ML PF SYRINGE SQ SCH (08:48)
[2017-10-16] MEDS: LOSARTAN POTASSIUM 25 MG TABLET PO SCH ×2 (10:02→11:48)
[2017-10-16] MEDS: VALSARTAN 80 MG TABLET PO SCH ×2 (10:02→11:48)
[2017-10-16] MEDS: DOCUSATE SODIUM 100 MG CAPSULE PO SCH (12:00)
[2017-10-16 12:17] LABS: GLUCOMETER DEV NAME(LOC) 2WR 2E; GLUCOSE,POINT OF CARE 123 MG/DL (70-110)
[2017-10-16 16:05] VITALS: BP 144/68
[2017-10-16 18:17] LABS: GLUCOMETER DEV NAME(LOC) 2WR 1B; GLUCOSE,POINT OF CARE 102 MG/DL (70-110)
[2017-10-16] MEDS: CLOPIDOGREL BISULFATE 75 MG TABLET PO SCH (18:33)
[2017-10-16] MEDS: MAGNESIUM OXIDE 400 MG TABLET PO SCH (18:34)
[2017-10-16] MEDS: SENNA 187 MG TABLET PO SCH (21:31)
[2017-10-16] MEDS: BIMATOPROST 0.01% 2.5 ML OPHTHALMIC SOLUTION OU SCH (21:32)
[2017-10-16] MEDS: ATORVASTATIN CALCIUM 40 MG TABLET PO SCH (21:32)
[2017-10-16 22:12] LABS: GLUCOMETER DEV NAME(LOC) 2WR 1B; GLUCOSE,POINT OF CARE 157 MG/DL (70-110)
[2017-10-16] MEDS: INSULIN LISPRO 100 UNITS/ML SQ PRN (22:12)
[2017-10-17 00:15] VITALS: BP 130/59
[2017-10-17] MEDS: FAMOTIDINE 20 MG TABLET PO SCH (06:12)
[2017-10-17 06:22] LABS: GLUCOMETER DEV NAME(LOC) 2WR 2E; GLUCOSE,POINT OF CARE 91 MG/DL (70-110)
[2017-10-17 07:52] VITALS: BP 120/67
[2017-10-17] MEDS: VALSARTAN 80 MG TABLET PO SCH (08:05)
[2017-10-17] MEDS: SitaGLIPtin PHOSPHATE 25 MG TABLET PO SCH (08:05)
[2017-10-17] MEDS: MetFORMIN HCL 500 MG TABLET PO SCH ×2 (08:06→17:54)
[2017-10-17] MEDS: SERTRALINE HCL 50 MG TABLET PO SCH ×2 (09:00→10:58)
[2017-10-17 10:55] VITALS: BP 139/60
[2017-10-17] MEDS: LOSARTAN POTASSIUM 25 MG TABLET PO SCH (10:58)
[2017-10-17] MEDS: ENOXAPARIN SODIUM 40 MG/0.4 ML PF SYRINGE SQ SCH (10:58)
[2017-10-17] MEDS: ATENOLOL 25 MG TABLET PO SCH ×2 (10:58→20:56)
[2017-10-17] MEDS: DOCUSATE SODIUM 100 MG CAPSULE PO SCH (12:00)
[2017-10-17 12:53] LABS: GLUCOMETER DEV NAME(LOC) 2WR 1B; GLUCOSE,POINT OF CARE 174 MG/DL (70-110)
[2017-10-17] MEDS: CLOPIDOGREL BISULFATE 75 MG TABLET PO SCH (13:10)
[2017-10-17] MEDS: MAGNESIUM OXIDE 400 MG TABLET PO SCH (13:10)
[2017-10-17] MEDS: INSULIN LISPRO 100 UNITS/ML SQ PRN (13:13)
[2017-10-17 15:35] VITALS: BP 140/67
[2017-10-17 17:58] LABS: GLUCOMETER DEV NAME(LOC) 2WR 2E; GLUCOSE,POINT OF CARE 109 MG/DL (70-110)
[2017-10-17 20:53] VITALS: BP 121/60
[2017-10-17] MEDS: BIMATOPROST 0.01% 2.5 ML OPHTHALMIC SOLUTION OU SCH (20:55)
[2017-10-17] MEDS: SENNA 187 MG TABLET PO SCH (20:56)
[2017-10-17] MEDS: ATORVASTATIN CALCIUM 40 MG TABLET PO SCH (20:56)
[2017-10-17 22:37] LABS: GLUCOMETER DEV NAME(LOC) 2WR 2E; GLUCOSE,POINT OF CARE 98 MG/DL (70-110)
[2017-10-18] MEDS ORDERED: ATEN25TA PO (04:15)
[2017-10-18] MEDS ORDERED: BIMA12.5OS OU (04:24)
[2017-10-18 04:54] VITALS: BP 137/62
[2017-10-18 05:59] LABS: GLUCOMETER DEV NAME(LOC) 2WR 1B; GLUCOSE,POINT OF CARE 99 MG/DL (70-110)
[2017-10-18] MEDS: FAMOTIDINE 20 MG TABLET PO SCH (06:55)
[2017-10-18 08:00] VITALS: BP 143/55
[2017-10-18] MEDS: VALSARTAN 80 MG TABLET PO SCH (08:26)
[2017-10-18] MEDS: LOSARTAN POTASSIUM 25 MG TABLET PO SCH (08:26)
[2017-10-18] MEDS: ATENOLOL 25 MG TABLET PO SCH ×2 (08:26→20:26)
[2017-10-18] MEDS: SitaGLIPtin PHOSPHATE 25 MG TABLET PO SCH (08:26)
[2017-10-18] MEDS: MetFORMIN HCL 500 MG TABLET PO SCH ×2 (08:27→18:40)
[2017-10-18] MEDS: ENOXAPARIN SODIUM 40 MG/0.4 ML PF SYRINGE SQ SCH (08:27)
[2017-10-18] MEDS: SERTRALINE HCL 50 MG TABLET PO SCH ×2 (08:27→08:38)
[2017-10-18 12:13] LABS: GLUCOMETER DEV NAME(LOC) 2WR 1B; GLUCOSE,POINT OF CARE 133 MG/DL (70-110)
[2017-10-18] MEDS: DOCUSATE SODIUM 100 MG CAPSULE PO SCH (12:26)
[2017-10-18] MEDS: CLOPIDOGREL BISULFATE 75 MG TABLET PO SCH (12:26)
[2017-10-18] MEDS: MAGNESIUM OXIDE 400 MG TABLET PO SCH (12:26)
[2017-10-18 16:28] VITALS: BP 120/59
[2017-10-18 19:18] LABS: GLUCOMETER DEV NAME(LOC) 2WR 2E; GLUCOSE,POINT OF CARE 104 MG/DL (70-110)
[2017-10-18] MEDS: ATORVASTATIN CALCIUM 40 MG TABLET PO SCH (20:23)
[2017-10-18] MEDS: SENNA 187 MG TABLET PO SCH (20:23)
[2017-10-18] MEDS: BIMATOPROST 0.01% 2.5 ML OPHTHALMIC SOLUTION OU SCH (20:23)
[2017-10-18 20:30] VITALS: BP 137/62
[2017-10-18 22:02] LABS: GLUCOMETER DEV NAME(LOC) 2WR 2E; GLUCOSE,POINT OF CARE 110 MG/DL (70-110)
[2017-10-18 23:56] VITALS: BP 120/61
[2017-10-19] MEDS: FAMOTIDINE 20 MG TABLET PO SCH (05:46)
[2017-10-19 06:42] LABS: GLUCOMETER DEV NAME(LOC) 2WR 1B; GLUCOSE,POINT OF CARE 116 MG/DL (70-110)
[2017-10-19 07:40] VITALS: BP 115/52
[2017-10-19] MEDS: SERTRALINE HCL 50 MG TABLET PO SCH (09:00)
[2017-10-19] MEDS: LOSARTAN POTASSIUM 25 MG TABLET PO SCH (09:03)
[2017-10-19] MEDS: MetFORMIN HCL 500 MG TABLET PO SCH ×2 (09:03→17:47)
[2017-10-19] MEDS: ATENOLOL 25 MG TABLET PO SCH ×2 (09:03→21:04)
[2017-10-19] MEDS: VALSARTAN 80 MG TABLET PO SCH (09:03)
[2017-10-19] MEDS: ENOXAPARIN SODIUM 40 MG/0.4 ML PF SYRINGE SQ SCH (09:03)
[2017-10-19] MEDS: SitaGLIPtin PHOSPHATE 25 MG TABLET PO SCH (09:03)
[2017-10-19 11:48] LABS: GLUCOMETER DEV NAME(LOC) 2WR 2E; GLUCOSE,POINT OF CARE 116 MG/DL (70-110)
[2017-10-19] MEDS: DOCUSATE SODIUM 100 MG CAPSULE PO SCH (12:36)
[2017-10-19] MEDS: MAGNESIUM OXIDE 400 MG TABLET PO SCH (12:36)
[2017-10-19] MEDS: CLOPIDOGREL BISULFATE 75 MG TABLET PO SCH (12:36)
[2017-10-19 15:55] VITALS: BP 129/59
[2017-10-19 17:53] LABS: GLUCOMETER DEV NAME(LOC) 2WR 2E; GLUCOSE,POINT OF CARE 125 MG/DL (70-110)
[2017-10-19 20:54] VITALS: BP 124/54
[2017-10-19] MEDS: ATORVASTATIN CALCIUM 40 MG TABLET PO SCH (21:04)
[2017-10-19] MEDS: BIMATOPROST 0.01% 2.5 ML OPHTHALMIC SOLUTION OU SCH (21:04)
[2017-10-19] MEDS: SENNA 187 MG TABLET PO SCH (21:04)
[2017-10-19 21:18] LABS: GLUCOMETER DEV NAME(LOC) 2WR 2E; GLUCOSE,POINT OF CARE 119 MG/DL (70-110)
[2017-10-20 03:31] VITALS: BP 140/66
[2017-10-20] MEDS: FAMOTIDINE 20 MG TABLET PO SCH (06:01)
[2017-10-20 06:13] LABS: GLUCOMETER DEV NAME(LOC) 2WR 2E; GLUCOSE,POINT OF CARE 107 MG/DL (70-110)
[2017-10-20 08:03] VITALS: BP 140/67
[2017-10-20] MEDS: SERTRALINE HCL 50 MG TABLET PO SCH (09:00)
[2017-10-20] MEDS: ATENOLOL 25 MG TABLET PO SCH (10:02)
[2017-10-20] MEDS: LOSARTAN POTASSIUM 25 MG TABLET PO SCH (10:02)
[2017-10-20] MEDS: ENOXAPARIN SODIUM 40 MG/0.4 ML PF SYRINGE SQ SCH (10:02)
[2017-10-20] MEDS: SitaGLIPtin PHOSPHATE 25 MG TABLET PO SCH (10:02)
[2017-10-20] MEDS: MetFORMIN HCL 500 MG TABLET PO SCH ×2 (10:02→17:49)
[2017-10-20] MEDS: VALSARTAN 80 MG TABLET PO SCH (10:02)
[2017-10-20 12:43] LABS: GLUCOMETER DEV NAME(LOC) 2WR 1B; GLUCOSE,POINT OF CARE 167 MG/DL (70-110)
[2017-10-20] MEDS: CLOPIDOGREL BISULFATE 75 MG TABLET PO SCH (13:05)
[2017-10-20] MEDS: MAGNESIUM OXIDE 400 MG TABLET PO SCH (13:05)
[2017-10-20] MEDS: DOCUSATE SODIUM 100 MG CAPSULE PO SCH (13:07)
[2017-10-20] MEDS: INSULIN LISPRO 100 UNITS/ML SQ PRN (13:08)
[2017-10-20 15:24] VITALS: BP 134/71
[2017-10-20 17:42] LABS: GLUCOMETER DEV NAME(LOC) 2WR 1B; GLUCOSE,POINT OF CARE 80 MG/DL (70-110)
[2017-10-20] MEDS: SENNA 187 MG TABLET PO SCH (20:28)
[2017-10-20] MEDS: ATORVASTATIN CALCIUM 40 MG TABLET PO SCH (20:29)
[2017-10-20] MEDS ORDERED: VALSARTAN 80 MG TABLET PO SCH (21:00)
[2017-10-20 21:45] VITALS: BP 128/58
[2017-10-20] MEDS: BIMATOPROST 0.01% 2.5 ML OPHTHALMIC SOLUTION OU SCH (21:47)
[2017-10-20] MEDS: ATENOLOL 50 MG TABLET PO SCH (21:47)
[2017-10-21 00:57] VITALS: BP 139/60
[2017-10-21] MEDS ORDERED: HYDR25TA PO (04:30)
[2017-10-21] MEDS ORDERED: TELM40 PO (04:30)
[2017-10-21] MEDS: FAMOTIDINE 20 MG TABLET PO SCH (05:42)
[2017-10-21 05:53] LABS: GLUCOMETER DEV NAME(LOC) 2WR 1B; GLUCOSE,POINT OF CARE 102 MG/DL (70-110)
[2017-10-21 07:30] VITALS: BP 149/75
[2017-10-21] MEDS: SERTRALINE HCL 50 MG TABLET PO SCH (09:00)
[2017-10-21] MEDS: ENOXAPARIN SODIUM 40 MG/0.4 ML PF SYRINGE SQ SCH (09:10)
[2017-10-21] MEDS: SitaGLIPtin PHOSPHATE 25 MG TABLET PO SCH (09:11)
[2017-10-21] MEDS: MetFORMIN HCL 500 MG TABLET PO SCH ×2 (09:11→17:58)
[2017-10-21] MEDS: HYDROCHLOROTHIAZIDE 25 MG TABLET PO SCH (09:11)
[2017-10-21] MEDS: TELMISARTAN 40 MG TABLET PO SCH (10:13)
[2017-10-21] MEDS: CLOPIDOGREL BISULFATE 75 MG TABLET PO SCH (14:07)
[2017-10-21] MEDS: DOCUSATE SODIUM 100 MG CAPSULE PO SCH (14:07)
[2017-10-21] MEDS: MAGNESIUM OXIDE 400 MG TABLET PO SCH (14:07)
[2017-10-21 16:33] VITALS: BP 146/76
[2017-10-21 18:03] LABS: GLUCOMETER DEV NAME(LOC) 2WR 2E; GLUCOSE,POINT OF CARE 91 MG/DL (70-110)
[2017-10-21] MEDS ORDERED: ATENOLOL 25 MG TABLET PO SCH (21:00)
[2017-10-21] MEDS: BIMATOPROST 0.01% 2.5 ML OPHTHALMIC SOLUTION OU SCH (21:46)
[2017-10-21] MEDS: ATENOLOL 50 MG TABLET PO SCH (21:46)
[2017-10-21] MEDS: SENNA 187 MG TABLET PO SCH (21:46)
[2017-10-21] MEDS: ATORVASTATIN CALCIUM 40 MG TABLET PO SCH (21:46)
[2017-10-21 21:50] VITALS: BP 125/69
[2017-10-22] VITALS: BP 134/58
[2017-10-22 05:37] LABS: GLUCOMETER DEV NAME(LOC) 2WR 1B; GLUCOSE,POINT OF CARE 98 MG/DL (70-110)
[2017-10-22] MEDS: FAMOTIDINE 20 MG TABLET PO SCH (06:12)
[2017-10-22] MEDS: MetFORMIN HCL 500 MG TABLET PO SCH (08:27)
[2017-10-22] MEDS: HYDROCHLOROTHIAZIDE 25 MG TABLET PO SCH (08:27)
[2017-10-22] MEDS: TELMISARTAN 40 MG TABLET PO SCH (08:27)
[2017-10-22] MEDS: SitaGLIPtin PHOSPHATE 25 MG TABLET PO SCH (08:27)
[2017-10-22] MEDS: SERTRALINE HCL 50 MG TABLET PO SCH ×2 (08:27→08:37)
[2017-10-22] MEDS: ENOXAPARIN SODIUM 40 MG/0.4 ML PF SYRINGE SQ SCH (08:28)
[2017-10-22 08:38] VITALS: BP 136/64
[2017-10-22] MEDS: CLOPIDOGREL BISULFATE 75 MG TABLET PO SCH (12:10)
[2017-10-22] MEDS: DOCUSATE SODIUM 100 MG CAPSULE PO SCH (12:10)
[2017-10-22] MEDS: MAGNESIUM OXIDE 400 MG TABLET PO SCH (12:12)
== END 2017-10-22 13:45 | disposition home health service (06) | DRG 535 ==
LOC: 2WR 17:20
PROVIDERS: ADMIT Physical Medicine & Rehabilitation; ATTEND Physical Medicine & Rehabilitation
DX: S72.142A Displaced intertrochanteric fracture of left femur, initial encounter for closed fracture (principal); E43 Unspecified severe protein-calorie malnutrition; E11.65 Type 2 diabetes mellitus with hyperglycemia; G81.94 Hemiplegia, unspecified affecting left nondominant side; N39.0 Urinary tract infection, site not specified; D64.9 Anemia, unspecified; Z91.19 Patient's noncompliance with other medical treatment and regimen; E78.5 Hyperlipidemia, unspecified; F32.9 Major depressive disorder, single episode, unspecified; I10 Essential (primary) hypertension; K21.9 Gastro-esophageal reflux disease without esophagitis; K59.00 Constipation, unspecified; W18.30XA Fall on same level, unspecified, initial encounter; R26.9 Unspecified abnormalities of gait and mobility; R01.1 Cardiac murmur, unspecified; G31.84 Mild cognitive impairment of uncertain or unknown etiology; Z79.4 Long term (current) use of insulin; Z82.49 Family history of ischemic heart disease and other diseases of the circulatory system
CPT/HCPCS: 82306; 82962; 83036; 83735; 85651; 86140; 87081; 87086; 93306; 93970; 97110; 97112; 97116; 97150; 97163; 97167; 97530; 97535; 99366; J0696; J1650; J1815; J7060; Q0162

== ENCOUNTER → 2021-03-20 | Outpatient (CLI) | payer MEDICARE, OTHER ==
[~2021-03-20] MED LIST changes: -ASPI-556 PO; +ATEN-73 PO; -ATEN50TA PO; +BIMA2.5D4 OU; -CLOP75 PO; +CLOP75TA60 PO; -ERGO500044 PO; +HYDR25TA2 PO; -HYDR25TA84 PO; -LOSA25TA21 PO; +MAGN400T7 PO; -MAGOX PO; +METF-960 PO; -METF500T6 PO; -MULT-248 PO; -SENN-175 PO; +SENN-277 PO; +SITA25 PO; +TELM40 PO
== END | disposition home or self-care (01) ==
LOC: RADPV 08:41
PROVIDERS: ATTEND Internal Medicine
DX: I70.293 Other atherosclerosis of native arteries of extremities, bilateral legs (principal); R22.43 Localized swelling, mass and lump, lower limb, bilateral
CPT/HCPCS: 93925; 93970